=== PATIENT | male | born 1980 | race Caucasian/White ===

== ENCOUNTER 2021-09-20 11:53 | Outpatient (CLI) | payer MEDICAID, OTHER ==
[2021-09-20 12:12] LABS: BILIRUBIN,URINE NEGATIVE (NEGATIVE); GLUCOSE, URINE (UA) NEGATIVE (NEGATIVE); KETONES,URINE (UA) NEGATIVE (NEGATIVE); LEUKOCYTE ESTERASE, URINE NEGATIVE (NEGATIVE); NITRITE,URINE NEGATIVE (NEGATIVE); OCCULT BLOOD,URINE NEGATIVE (NEGATIVE); PROTEIN,URINE NEGATIVE (NEGATIVE); UROBILINOGEN,URINE 0.2 (NORMAL) E.U./dL (NORMAL)
[2021-09-20 12:25] LABS: BACTERIA,URINE None Seen /HPF (None Seen); CLARITY,URINE CLEAR (CLEAR); RBC,URINE None Seen /HPF (0-5); SQUAMOUS EPITHELIAL CELL,UR NONE SEEN (<= Few); WBC,URINE 0-3 /HPF (0-3)
[2021-09-20 22:14] LABS: CHLAMYDIA TRACHOMATIS DNA NEGATIVE (NEGATIVE); NEISSERIA GONORRHOEAE DNA NEGATIVE (NEGATIVE)
== END 2021-09-20 11:54 | disposition home or self-care (01) ==
LOC: LAB 11:53 → LAB.R 11:54
PROVIDERS: ATTEND Registered Nurse
DX: R82.79 Other abnormal findings on microbiological examination of urine (principal); Z11.3 Encounter for screening for infections with a predominantly sexual mode of transmission
CPT/HCPCS: 81001; 87086; 87491; 87591; 87661

== ENCOUNTER 2021-09-29 16:59 | Outpatient (CLI) | payer OTHER ==
--- NOTE | 2021-09-29 17:55 | Ultrasound Report ---
PROCEDURE: Testicle INDICATIONS: TESTICLE MASS TECHNIQUE: Real-time scanning was performed of the scrotum and testicles, with image documentation. Color and p ulse Doppler interrogation was performed of both testicles. COMPARISON: None. FINDINGS: Right: Testicle is normal in size at 4.9 x 2.4 x 3.1 cm, and homogenous in echotexture. Epididymis is normal in overall size and morphology. Right epididymal cysts are seen measures 1.8 x 1.5 x 1.9 c m and 1.4 x 1.4 x 1.7 cm in size. No varicoceles. Small right hydrocele is seen. Overlying scrotal sk in is normal in thickness. Left: Testicle is normal in size at 4.5 x 2 x 3.2 cm, and homogeneous in echotexture. Epididymis is normal in overall size and morphology. Small left hydrocele is seen. No varicoceles. Overlying scrot al skin is normal in thickness. Doppler: Color and pulse Doppler demonstrate normal and symmetric arterial flow in both testicles. IMPRESSION: 1. Normal-appearing bilateral testes. No evidence of testicular torsion. No solid-appearing testicula r lesion. 2. Small bilateral hydrocele. 3. 2 simple cysts seen in right epididymal head region as above. No solid-appearing epididymal lesion is seen. Normal-appearing left epididymis. Reviewed by: Uday Powers MD on 09/29/2021 5:54 PM PST Approved by: Uday Powers MD on 09/29/2021 5:54 PM PST Station ID: [id number]
== END 2021-09-29 17:00 | disposition home or self-care (01) ==
LOC: DI 16:59
PROVIDERS: ATTEND Registered Nurse
DX: N43.3 Hydrocele, unspecified (principal); N50.3 Cyst of epididymis